=== PATIENT | male | born 1990 | race Caucasian/White ===

== ENCOUNTER 2021-08-14 14:09 | Emergency (ER) | payer MEDICAID ==
[~2021-08-14] VITALS: Ht 175.3 cm; Wt 65.9 kg
[~2021-08-14 14:09] MED LIST: DICY10CA88 PO; IBUP-1984 PO; NO HOME MEDS
[2021-08-14] MEDS ORDERED: iohexol 300mg/ml 100ml inj. ONE (15:43)
[2021-08-14] MEDS ORDERED: AMOX-117 PO (17:24)
[2021-08-14] MEDS ORDERED: amox tr/potassium clavulanate 875/125mg TAB PO ONE (17:25)
[2021-08-14 17:50] VITALS: BP 120/74
== END 2021-08-14 17:52 | disposition home or self-care (01) ==
LOC: ER 14:10
DX: J03.90 Acute tonsillitis, unspecified (principal); R07.0 Pain in throat; F11.90 Opioid use, unspecified, uncomplicated; F19.90 Other psychoactive substance use, unspecified, uncomplicated; Z98.890 Other specified postprocedural states; Z60.2 Problems related to living alone; Z79.2 Long term (current) use of antibiotics; Z79.899 Other long term (current) drug therapy
CPT/HCPCS: 70491; 87081; 87880; 99285; Q9967

== ENCOUNTER 2023-08-26 04:37 | Emergency (ER) | payer BC, MEDICAID ==
[~2023-08-26] VITALS: Ht 175.3 cm; Wt 68.2 kg
[~2023-08-26 04:37] MED LIST changes: -DICY10CA88 PO; +ESCI-8 PO; +HYDR-3686 PO; -IBUP-1984 PO; +NICO-631 TD; +NICO-907 BC; +RISP-31 PO; +RISP-32 PO; +TRAZ-251 PO
[2023-08-26 06:38] LABS: ANION GAP 9 (8-16); BLOOD UREA NITROGEN 13 MG/DL (7-18); BUN/CREATININE RATIO 18.6 (10.0-20.0); CALCIUM 8.7 MG/DL (8.5-10.1); CHLORIDE 105 MMOL/L (99-107); ETHANOL < 10 MG/DL (<10); GLUCOSE 81 MG/DL (70-104); POTASSIUM 3.6 MMOL/L (3.5-5.1); SODIUM 141 MMOL/L (135-145); TOTAL CARBON DIOXIDE 27.2 MMOL/L (24-32); eCRCL 145 ML/MIN; eGFR > 90 ML/MIN
[2023-08-26 06:46] LABS: BASOPHILS % (AUTO) 0.4 % (0-1); EOSINOPHILS # (AUTO) 0.1 X10'3 (0-0.9); EOSINOPHILS % (AUTO) 1.7 % (0-6); HEMATOCRIT 41.8 % (42.0-52.0); HEMOGLOBIN 14.5 g/dl (14.0-17.9); LYMPHOCYTES # (AUTO) 1.5 X10'3 (1.1-4.8); LYMPHOCYTES % (AUTO) 27.4 % (21-51); MEAN CORPUSCULAR HEMOGLOBIN 30.1 PG (27.0-31.0); MEAN CORPUSCULAR HGB CONC 34.6 g/dL (33.0-36.5); MEAN CORPUSCULAR VOLUME 87.1 FL (78-98); MEAN PLATELET VOLUME 8.5 FL (7.4-10.4); MONOCYTES # (AUTO) 0.5 X10'3 (0-0.9); MONOCYTES % (AUTO) 8.8 % (2-12); NEUTROPHILS # (AUTO) 3.5 X10'3 (1.8-7.7); NEUTROPHILS % (AUTO) 61.7 % (42-75); PLATELET COUNT 242 X10'3 (140-440); RED CELL DISTRIBUTION WIDTH 13.9 % (11.5-14.5); WHITE BLOOD COUNT 5.7 X10'3 (4.5-11.0)
[2023-08-26 07:06] LABS: URINE AMPHETAMINE SCREEN POSITIVE (Neg); URINE BARBITUATE SCREEN NEGATIVE (Neg); URINE BENZODIAZEPINES SCREEN NEGATIVE (Neg); URINE CANNABINOID SCREEN NEGATIVE (Neg); URINE COCAINE SCREEN NEGATIVE (Neg); URINE METHADONE SCREEN NEGATIVE (Neg); URINE OPIATE SCREEN NEGATIVE (Neg); URINE PHENCYCLIDINE SCREEN NEGATIVE (Neg)
[2023-08-26 10:54] VITALS: BP 118/67; PULSE 82; RESP 18; TEMP 98.6; O2SAT 96
== END 2023-08-26 10:55 | disposition home or self-care (01) ==
LOC: ER 04:37
DX: F29 Unspecified psychosis not due to a substance or known physiological condition (principal); Z20.822 Contact with and (suspected) exposure to COVID-19; F17.210 Nicotine dependence, cigarettes, uncomplicated; Z79.899 Other long term (current) drug therapy
CPT/HCPCS: 36415; 80048; 80305; 80320; 85025; 87811; 99284